=== PATIENT | male | born 1980 | race Asian ===

== ENCOUNTER 2020-05-22 11:19 | Outpatient (REF) | payer OTHER, SELFPAY ==
--- NOTE | 2020-05-22 | US_ITS ---
EXAMINATION: UNILATERAL TRIPLEX SCANNING OF THE LEFT LOWER EXTREMITY CLINICAL INFORMATION: Left lower extremity swelling. COMPARISON: None. TECHNIQUE: Color-flow triplex imaging with spectral analysis and compression Doppler were performed on the left lower extremity. FINDINGS: Respiratory variation, normal compression and augmented flow are noted throughout the lower extremity. The visualized common femoral vein, superficial femoral vein, profunda femoral vein, popliteal vein and mid calf peroneal and posterior tibial venous segments show no evidence of deep venous thrombosis. There is no Deras's cyst. IMPRESSION: Normal triplex scan without evidence of deep venous thrombosis involving the left lower extremity.
== END 2020-05-22 11:20 | disposition home or self-care (01) ==
LOC: HO.HMGCX 11:19
PROVIDERS: PCP Internal Medicine; Visit Provider Nurse Practitioner Family
DX: M79.605 Pain in left leg (principal)
CPT/HCPCS: 93971

== ENCOUNTER 2020-06-21 09:00 | Outpatient (RCR) | payer OTHER, SELFPAY ==
--- NOTE | 2020-06-17 13:51 | MHC.PT.OD ---
[facility] [place] [facility] [place] [facility] [place] [facility] [address] Jensen Campos [address] [phone] F: [phone] F: [phone] F: [phone] F: [phone] Physical Therapy Daily Note Diagnosis: Radiculopathy, Lumbar region M54.16 date of referral 05/31/2020 from [facility] signed by Radha Esposito MD. Date of Surgery: N/A Date of Evaluation: 06/07/20 Treatments to Date: 1 Cancellations to Date: 0 No Shows to Date: 0 Authorized Visits: 1 Insurance End Date: Precautions/ Contraindications:HTN, absent I heel raise on L due to this issue Subjective: Pt expressing constant numbness into L heel and has radiating sx to calf. Weakness in calf persists, having difficulty walking. Pain Score: 9 Pain Location: L LE Objective Flowsheet: Tests & Measures At start of care, unable to perform heel raise after traction able to actively perform 20% AROM L calf raise. Exercises Prone lying over 2 pillows with TAC x10 minutes, trial prone on elbows x 10 sec hold x 10R. centralized sx to height of L thigh. ANDRIY with glute set x 10 sec hold x 10R. Prone press up x 10 sec hold x 10R Educated re: maintaining prone getting up while maintaining extension. Fax sent to Dr. Esposito's office relaying concern for calf weakness. Pt may benefit from follow-up and or MRI to assess presence of disc pathology due to inability to perform calf raise. Some minimal ? relief in heel numbness post traction. He continues to exhibit absent heel strike during ambulation on L. Reviewed log roll technique when getting up from mechanical traction, encouraged movement, avoidance of static sitting. Prone over 2 pillows for STM to left lumbar region followed by taping L lumbar lumbar paraspinal 20 minutes traction pulling, 5 minute rest and 3 minute assessment post Modalities Prone for MHP to lumbar and L proximal thigh with use of Naymit unit setting #6 intensity 11 mA x 15 minutes, discussed and educated patient that this unit is sold online- issued and distributed patient information. Mechanical traction trialed: with parameters as noted Min 75#, max 110# x 10 minutes, progressive static 3 steps 1 minutes, static x 18, regressive 3 steps 1 minutes Assessment: Pt verbalizing some improvement in L LE following trial of mechanical traction last session. PT Plan: Note placed to PCP office due to concern for ongoing calf weakness. Pt reports he was given a follow up in July with his PCP. Discharge Today? Short Term Goals: 1) Pt will demonstrate centralization of sx to height of the buttocks. 2) Pt gregory be able to perform single heel raise with L LE. 3) Pt will demonstrate non-antalgic symmetrical gait. 4) Pt will demonstrate L plantar flexion to 3+/5. Intermediate Goals: 1) Pt will resume walking program independent of L leg pain. 2) Pt will demonstrate strength L PF 5/5. 3) No radiating L leg pain with activities such as bending over to don socks/shoes. 4) Pt will demonstrate I HEP. Electronically signed by: Niecy Alcantara, PT, DPT
--- NOTE | 2020-07-24 16:36 | MHC.PT.DC ---
[facility] [place] Office [place] Office [place] Office [address] Jensen Campos [address] [phone] F: [phone] F: [phone] F: [phone] F: [phone] Physical Therapy Discharge Report Diagnosis: Radiculopathy, Lumbar region M54.16 date of referral 05/31/2020 from [facility] signed by Radha Esposito MD. Date of Surgery: N/A Date of Evaluation: 06/07/20 Date of Discharge: 07/24/20 Treatments to Date: 5 Cancellations to Date: 0 No Shows to Date: 0 Discharge Status: Patient Elected to Stop Discharge Summary: Pt called to cancel all visits and is d/c at this time. Electronically signed by: Rimma Goldman, PT, DPT Please sign and return to therapist. Thank you for your referral.
== END 2020-07-24 16:50 | disposition other institution (70) ==
LOC: HO.PTCHIC 09:00
PROVIDERS: PCP Internal Medicine; Visit Provider Internal Medicine
DX: M54.16 Radiculopathy, lumbar region (principal)
CPT/HCPCS: 97012; 97014; 97110; 97112; 97140; 97161; 97530; 97535

== ENCOUNTER 2020-06-21 10:52 | Outpatient (REF) | payer OTHER, SELFPAY ==
--- NOTE | 2020-06-21 10:54 | MR_ITS ---
MR LUMBAR SPINE WITHOUT IV CONTRAST CLINICAL INFORMATION: Lumbar region radiculopathy. COMPARISON: None available. TECHNIQUE: MRI of the lumbar spine was obtained using routine sequences without contrast. FINDINGS: There are 5 nonrib-bearing lumbar-type vertebral bodies. Lumbar alignment is normal. The vertebral body heights are maintained. There is mild disc volume loss and there is disc desiccation at L5-S1. There is also disc desiccation at L4-L5. There is no bone marrow edema. There are no acute fractures. Conus terminates at the L1 level. There are no significant soft tissue findings. Fatty filum terminale. L1-L2, L2-L3, and L3-L4 disc contours remain normal. There is no central canal stenosis and there is no foraminal stenosis at these levels. L4-L5: There is a diffuse annular disc bulge and there is mild to moderate bilateral facet arthropathy and ligamentum flavum thickening. There is no central canal stenosis. There is mild/moderate foraminal encroachment bilaterally. Right and left lateral annular fissures. L5-S1: There is a left paracentral disc protrusion that results in posterior deflection of the traversing left S1 nerve root within the left subarticular zone. Background annular disc bulge and mild bilateral facet arthropathy. No central canal stenosis. Foraminal encroachment bilaterally. MR/MR lumbar spine wo con IMPRESSION: - At L5-S1, a left paracentral disc protrusion results in posterior deflection of the traversing left S1 nerve root within the left subarticular zone. - At L4-L5, there is a diffuse annular disc bulge exhibiting right left lateral annular fissures that results in mild to moderate bilateral foraminal encroachment.
== END 2020-06-21 10:53 | disposition home or self-care (01) ==
LOC: HO.MRI 10:52
PROVIDERS: Visit Provider Internal Medicine
DX: M54.16 Radiculopathy, lumbar region (principal); M79.606 Pain in leg, unspecified
CPT/HCPCS: 72148

== ENCOUNTER 2020-09-19 07:28 | Outpatient (REF) | payer OTHER, SELFPAY ==
[2020-09-19 11:15] LABS: Hematocrit 46.1 % (42-52); Hemoglobin 15.1 g/dl (14.0-18.0); Mean Corpuscular HGB Conc 32.8 g/dl (31.0-36.0); Mean Corpuscular Hemoglobin 29.8 pg (27.0-33.0); Mean Corpuscular Volume 90.9 fL (80-98); Mean Platelet Volume 9.4 fL (9.4-12.4); Platelet Count 343 X10*3/uL (160-400); Red Blood Count 5.07 X10*6/uL (4.60-5.80)
[2020-09-19 11:58] LABS: Alanine Aminotransferase 36 U/L (0-40); Albumin Level 4.2 g/dL (3.5-5.0); Alkaline Phosphatase 92 U/L (39-117); Anion Gap 13 (12-20); Aspartate Amino Transferase 22 U/L (5-37); Bilirubin Total 0.4 mg/dL (0.0-1.0); Blood Urea Nitrogen 14 mg/dL (9-16); Calcium 8.8 mg/dL (8.4-10.2); Carbon Dioxide 25 mmol/L (22-29); Chloride 106 mmol/L (96-108); Cholesterol 149 mg/dL; Estimated Glomerular Filt Rate > 60; Glucose Fasting 91 mg/dL (60-99); HDL Cholesterol 34 mg/dL; LDL Cholesterol Calculated 85 mg/dl; Potassium 4.8 mmol/L (3.3-5.1); Sodium 139 mmol/L (135-145); Total Protein 6.8 g/dL (6.5-8.0); Triglycerides 151 mg/dL
== END 2020-09-19 07:29 | disposition home or self-care (01) ==
LOC: HO.HMGCLDS 07:28
PROVIDERS: PCP Internal Medicine; Visit Provider Internal Medicine
DX: I10 Essential (primary) hypertension (principal); E78.5 Hyperlipidemia, unspecified
CPT/HCPCS: 36415; 80053; 80061; 85027